=== PATIENT | male | born 1980 | race Caucasian/White ===

== ENCOUNTER → 2017-07-25 | Outpatient (CLI) | payer OTHER | LOC: M.RAD 15:14 | DX: I10 Essential (primary) hypertension (principal) ==

== ENCOUNTER → 2019-03-20 | Outpatient (CLI) | payer OTHER | LOC: M.ULTRA 14:52 | DX: N43.2 Other hydrocele (principal); N50.819 Testicular pain, unspecified; N50.9 Disorder of male genital organs, unspecified ==

== ENCOUNTER 2019-10-04 18:25 | Emergency (ER) | payer OTHER ==
[~2019-10-04] VITALS: Ht 182.9 cm; Wt 138.8 kg
[2019-10-04 19:00] LABS: ABSOLUTE BASOPHILS 0.1 thou/uL (0.0-0.2); ABSOLUTE EOSINOPHILS 0.3 thou/uL (0.0-0.7); ABSOLUTE NEUTROPHILS 4.3 thou/uL (1.6-8.1); BASOPHILS 0.6 %; EOSINOPHILS 2.4 %; LYMPHOCYTES 47.1 %; MCH 30.3 pg (26.0-34.0); MCHC 35.7 g/dL (28.0-37.0); NUCLEATED RBCS 0 /100WBC; PLATELET COUNT* 298 thou/uL (150-400); POLYS 40.9 %; RBC 5.29 mil/uL (4.50-6.00); RDW-CV 12.9 % (10.5-14.5); WBC 10.6 thou/uL (4.0-11.0)
[2019-10-04 19:12] LABS: CALCIUM 8.7 mg/dL (8.5-10.1); CREATININE 1.3 mg/dL (0.6-1.3)
[2019-10-04 19:23] LABS: ALBUMIN 4.5 g/dL (3.4-5.0); MAGNESIUM 1.8 mg/dL (1.8-2.4); TOTAL BILIRUBIN 0.3 mg/dL (<0.1-1.0); TOTAL PROTEIN 8.2 g/dL (6.4-8.2)
[2019-10-04 21:35] VITALS: BP 122/72
--- NOTE | 2019-10-05 09:29 | EKG ---
[place] [address] ELECTROCARDIOGRAM REPORT Name: ALENMARIJA ALLIE Room: [facility]#: [id number] Admission: 10/04/19 Attend Phys: Discharge: 10/04/19 Date of : 82 Date of Service: 10/04/19 1830 Report #: [id number] THIS REPORT FOR: //name// [facility] ED Test Date: 2019-10-04 Test Time: 18:30:48 Pat Name: MARIJA LOWRY Department: Room: Gender: Slitter Processed Film: : 1980 Requested By: Cristino Park Order Number: [id number] MD: Hossein Hidalgo Measurements Intervals [place] Rate: 111 P: 55 NE: 165 QRS: 50 QRSD: 108 T: -5 QT: 349 QTc: 474 Interpretive Statements Sinus tachycardia Borderline T abnormalities, inferior leads Baseline wander in lead(s) V2 No previous ECG available for comparison Electronically Signed On 10-05-2019 9:28:07 CDT by Hossein Hidalgo [email or web address] <ELECTRONICALLY SIGNED> By: Hossein Hidalgo MD, [facility] 10/05/19 0928 1830 1830 Hossein Hidalgo MD, [facility] /EPI
== END 2019-10-04 21:35 | disposition home or self-care (01) ==
LOC: M.ERS 18:25
PROVIDERS: Emergency Medicine Emergency Medical Services
DX: R07.89 Other chest pain (principal); F41.0 Panic disorder [episodic paroxysmal anxiety]

== ENCOUNTER → 2019-10-26 | Outpatient (CLI) | payer OTHER ==
--- NOTE | 2019-10-26 11:44 | TST ---
[place] [address] TREADMILL STRESS TEST Name: LOWRYMARIJA Room: [facility]#: [id number] Admission: 10/26/19 Attend Phys: Natalya Yancey DO Discharge: Date of : 82 Date of Service: 10/26/19 1105 Report #: [id number] THIS REPORT FOR: cc: Rodolfo Fall Adam J DO Holkins, John M. MD [facility] ~ CC: Rodolfo Yancey DO DATE OF SERVICE: 10/26/2019 TREADMILL TEST Resting 12-lead electrocardiogram demonstrates sinus rhythm and is within normal limits. The patient exercised for 9 minutes and 16 seconds according to a standard Yann protocol. He stopped because of shortness of breath, but denying chest pain. Resting heart rate was 74 with an increase to 188 at peak exercise, exceeding the 90% age predicted maximum. Blood pressure is 126/86 initially, increasing to 190/64 during exercise and falling to 157/82 during the post-exercise phase. There were no ischemic ST-T alterations noted. There were no significant supraventricular or ventricular arrhythmias noted. IMPRESSION: 1. Negative treadmill exercise test for provocation of ischemic ST-T alterations. 2. No chest pain provoked by exertion. 3. Appropriate heart rate and systolic blood pressure responses to exercise. 4. No significant arrhythmias noted during or post-exercise. 5. Satisfactory level of fitness for age. <ELECTRONICALLY SIGNED> By: Dustin Rubio MD, FACC 10/26/19 1144 1105 1120 Dustin Rubio MD, FACC /nt
== END ==
LOC: M.NUC 10-15 08:38
DX: R07.9 Chest pain, unspecified (principal); E78.5 Hyperlipidemia, unspecified; K76.0 Fatty (change of) liver, not elsewhere classified

== ENCOUNTER 2020-03-07 23:22 | Emergency (ER) | payer OTHER ==
[~2020-03-07] VITALS: Ht 182.9 cm; Wt 147.4 kg
[2020-03-07] MEDS ORDERED: VENTOLIN HFA 1818 GM INH (23:35)
[2020-03-07 23:50] LABS: ABSOLUTE BASOPHILS 0.1 thou/uL (0.0-0.2); ABSOLUTE EOSINOPHILS 0.1 thou/uL (0.0-0.7); ABSOLUTE LYMPHOCYTES 2.8 thou/uL (0.8-5.3); ABSOLUTE MONOCYTES 0.9 thou/uL (0.0-1.2); ABSOLUTE NEUTROPHILS 8.8 thou/uL (1.6-8.1); BASOPHILS 0.6 %; EOSINOPHILS 1.1 %; HEMATOCRIT 45.6 % (42.0-52.0); HEMOGLOBIN 16.1 gm/dL (14.0-18.0); LYMPHOCYTES 21.8 %; MCH 30.2 pg (26.0-34.0); MCHC 35.4 g/dL (28.0-37.0); MCV 85.1 fL (80.0-100.0); MONOCYTES 7.2 %; MPV 7.7 fl. (7.2-11.1); NUCLEATED RBCS 0 /100WBC; PLATELET COUNT* 245 thou/uL (150-400); POLYS 69.3 %; RBC 5.35 mil/uL (4.50-6.00); WBC 12.7 thou/uL (4.0-11.0)
[2020-03-08] LABS: CALCIUM 9.5 mg/dL (8.5-10.1); CREATININE 1.3 mg/dL (0.6-1.3); POTASSIUM 3.1 mmol/L (3.5-5.1)
[2020-03-08 00:04] LABS: APTT 26.3 Seconds (25.0-31.3); INR 1.1; PROTIME 11.1 Seconds (9.20-11.50)
[2020-03-08 00:13] LABS: ALBUMIN 4.5 g/dL (3.4-5.0); CK-MB MASS 1.8 ng/mL (<0.5-3.6); MAGNESIUM 1.8 mg/dL (1.8-2.4); TOTAL BILIRUBIN 0.5 mg/dL (<0.1-1.0); TOTAL PROTEIN 8.3 g/dL (6.4-8.2)
[2020-03-08] MEDS ORDERED: XANAX 1 MG TABLE1 MG PO (02:01)
[2020-03-08 02:06] VITALS: BP 134/74
--- NOTE | 2020-03-10 17:30 | EKG ---
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1980 Requested By: Yordy Clark Order Number: [id number] MD: Venkata Snowden Measurements Intervals [place] Rate: 114 P: 54 [place]: 181 QRS: 55 QRSD: 110 T: -16 QT: 332 QTc: 458 Interpretive Statements Sinus tachycardia Borderline repolarization abnormality Baseline wander in lead(s) II,III,aVR,aVF Compared to ECG 10/04/2019 18:30:48 T-wave abnormality no longer present Electronically Signed On 03-10-2020 17:30:05 CDT by Venkata Snowden [email or web address] <ELECTRONICALLY SIGNED> By: Venkata Snowden MD, FAC 03/10/20 1730 2327 2327 Venkata Snowden MD, FAC /EPI
== END 2020-03-08 02:09 | disposition home or self-care (01) ==
LOC: M.ERS 23:22
PROVIDERS: Emergency Medicine
DX: F41.9 Anxiety disorder, unspecified (principal); R07.9 Chest pain, unspecified; E78.00 Pure hypercholesterolemia, unspecified; E66.9 Obesity, unspecified; Z88.1 Allergy status to other antibiotic agents

== ENCOUNTER 2020-03-10 20:24 | Observation (INO) | payer OTHER ==
[~2020-03-10] VITALS: Ht 182.9 cm; Wt 140.2 kg
[~2020-03-10 20:24] MED LIST: VENTOLIN HFA 1818 GM INH; XANAX 1 MG TABLE1 MG PO
[2020-03-10 20:31] VITALS: BP 173/89
[2020-03-10 20:54] LABS: ABSOLUTE BASOPHILS 0.1 thou/uL (0.0-0.2); ABSOLUTE EOSINOPHILS 0.2 thou/uL (0.0-0.7); ABSOLUTE LYMPHOCYTES 3.2 thou/uL (0.8-5.3); ABSOLUTE MONOCYTES 0.7 thou/uL (0.0-1.2); ABSOLUTE NEUTROPHILS 4.2 thou/uL (1.6-8.1); BASOPHILS 0.6 %; EOSINOPHILS 2.1 %; HEMATOCRIT 45.3 % (42.0-52.0); LYMPHOCYTES 38.6 %; MCH 30.2 pg (26.0-34.0); MCHC 35.4 g/dL (28.0-37.0); MCV 85.4 fL (80.0-100.0); MONOCYTES 8.6 %; MPV 7.5 fl. (7.2-11.1); NUCLEATED RBCS 0 /100WBC; PLATELET COUNT* 242 thou/uL (150-400); POLYS 50.1 %; RBC 5.31 mil/uL (4.50-6.00); WBC 8.3 thou/uL (4.0-11.0)
[2020-03-10 21:07] LABS: CALCIUM 8.9 mg/dL (8.5-10.1); CREATININE 1.3 mg/dL (0.6-1.3); POTASSIUM 3.3 mmol/L (3.5-5.1)
[2020-03-10 21:08] LABS: APTT 26.5 Seconds (25.0-31.3); INR 1.1; PROTIME 11.6 Seconds (9.20-11.50)
[2020-03-10 21:19] LABS: ALBUMIN 4.5 g/dL (3.4-5.0); TOTAL BILIRUBIN 0.8 mg/dL (<0.1-1.0); TOTAL PROTEIN 8.1 g/dL (6.4-8.2)
[2020-03-11 00:21] VITALS: BP 138/75
[2020-03-11 00:40] VITALS: BP 155/90
[2020-03-11 01:42] LABS: URINE BILIRUBIN NEGATIVE (Negative); URINE BLOOD NEGATIVE (Negative); URINE CLARITY CLEAR; URINE COLOR YELLOW; URINE GLUCOSE-RANDOM NEGATIVE (Negative); URINE KETONES TRACE (Negative); URINE LEUKOCYTES-REFLEX NEGATIVE (Negative); URINE NITRITE-REFLEX NEGATIVE (Negative); URINE PROTEIN NEGATIVE (Negative); URINE UROBILINOGEN 0.2 E.U./dl (0.2-1.0)
[2020-03-11 01:49] LABS: AMP/METHAMP Negative (Negative); BARBITURATES Negative (Negative); BENZODIAZEPINES Negative (Negative); COCAINE Negative (Negative); METHADONE Negative (Negative); OPIATES Negative (Negative); PCP Negative (Negative); THC Negative (Negative)
[2020-03-11 04:33] VITALS: BP 108/701
[2020-03-11 05:27] LABS: CHOLESTEROL 182 mg/dL (<200); HDL CHOLESTEROL 35 mg/dL (>40); LDL CHOLESTEROL 128 mg/dL (<100); TC:HDL 5.2 Ratio (Not establshd); TRIGLYCERIDE 98 mg/dL (<150); VLDL 20 mg/dL (<40)
[2020-03-11 05:38] LABS: SERUM ASSESSMENT Clear
--- NOTE | 2020-03-11 07:36 | NUR ---
ADMITTED PT TO RM 226 @ 0030. pT ALERT AND ORIENTED. VSS ON RA. MEDS GIVEN PER EMAR. PT WAS ANXIOUS ABOUT HAVING COVID PTS ON THE UNIT. PT VOICED THAT HE HAS AN AT RISK DTR. PT TOLD THAT ROOM CAN BE CLOSED AT ALL TIMES IF IT WILL MAKE HIM MORE COMFORTABLE HE WANTED TO HAVE HIS MASK ON AT ALL TIMES. PT OK WITH HAVING ROOM CALSOED. PT UP AD SOFÍA. ORIENTED TO ROOM AND CALL LIGHT. NPO FOR CARDIOLOGY CONSULT. WILL CONTINUE TO MONITOR.
[2020-03-11 08:00] VITALS: BP 133/84
--- NOTE | 2020-03-11 09:06 | NUR ---
Interview with patient at bedside. States lives with and child. Indep with ADLs. No history of HH.
--- NOTE | 2020-03-11 10:32 | NUR ---
ASSUMED PT CARE AT 0730, PT AOX4 AND C/O SOME MINOR CHEST PAIN RATED 3/10 IN L CHEST, HE STATES WHEN HE TAKES VANESA SELTZER, IT TEMOPORARILY MAKES IT BETTER AND STRENUOUS ACTIVITIES MAKE IT WORSE. PT DENIES WANTING ANY PAIN MEDS OR NITRO. PT WORKED W/ CARDIOLOGY THIS MORNING, GI COCKTAIL ORDERED AND GIVEN TO PT. PT POTASSIUM LOW THIS MORNING, 3.3, DR HOWARD CONSULTED AND AWAITING ORDERS. PT GOAL IS TO KEEP CHEST PAIN UNDER CONTROL AND WORK ON DECREASING ANXIETY. PT DOOR IS TO BE KEPT SHUT R/T PT BEING ANXIOUS ABOUT US HAVING COVID PATIENT'S ON THIS FLOOR. AM ASSESSMENT CHARTED, MEDS PER MAR, HOURLY ROUNDING OBSERVED, PT UP AD SOFÍA, CALL LIGHT W/IN REACH, WILL CONTINUE POC.
[2020-03-11 12:00] VITALS: BP 125/82
[2020-03-11] MEDS ORDERED: SUMATRIPTAN SUC50 MG PO (14:28)
[2020-03-11] MEDS ORDERED: PROTONIX40 M2 PO (14:28)
--- NOTE | 2020-03-11 14:30 | NUR ---
Nutrition: Pt admitted with chest pain, possibly R/T reflux. Consult received for keto diet. Spoke with RN today. Pt is wanting a keto diet once he advances past NPO. We do not have a ketogenic diet here, but RN stated she'd give pt a menu so he could have choices to order. Currently NPO. Alb 4.5. No other needs at this time. Pt is aware of his home diet and chooses keto and fasting, per RN. Low nutrition risk.
--- NOTE | 2020-03-11 16:09 | EKG ---
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 : 1980 Requested By: Dasha Hay Order Number: [id number] MD: Dustin Rubio Measurements Intervals [place] Rate: 94 P: 54 [place]: 191 QRS: 53 QRSD: 102 T: -2 QT: 357 QTc: 447 Interpretive Statements Sinus rhythm Borderline T abnormalities, inferior leads Compared to ECG 03/07/2020 23:27:56 T-wave abnormality now present Sinus tachycardia no longer present Electronically Signed On 03-11-2020 16:09:33 CDT by Dustin Rubio [email or web address] <ELECTRONICALLY SIGNED> By: Dustin Rubio MD, FACC 03/11/20 1609 29 29 Dustin Rubio MD, FAC /EPI
--- NOTE | 2020-03-11 16:50 | 2DMMODE ---
[place] [address] 2 D/M-MODE ECHOCARDIOGRAM Name: MARIJA LOWRY Zeus Room: [address] [place]ubrey#: [id number] Admission: 03/10/20 Attend Phys: Bhavesh Hines, Discharge: Date of : 82 Date of Service: 03/11/20 1650 Report #: [id number] THIS REPORT FOR: cc: Rodolfo Fall Adam J DO Liston, Michael J. MD [facility] ~ APPROVED REPORT Study performed: 03/11/2020 14:10:06 EXAM: Comprehensive 2D, Doppler, and color-flow Echocardiogram Patient Location: In-Patient Room #: [facility] Status: routine BSA: 2.56 HR: 60 bpm BP: 125/82 mmHg Rhythm: NSR Other Information Study Quality: Good Indications Dyspnea Chest Pain 2D Dimensions IVSd: 10.94 (7-11mm) LVOT Diam: 23.11 (18-24mm) LVDd: 48.58 mm PWd: 10.42 (7-11mm) Ascending Ao: 31.37 (22-36mm) LVDs: 31.11 (25-40mm) Aortic Root: 32.69 mm Volumes Left Atrial Volume (Systole) LA ESV Index: 22.30 mL/m2 Aortic Valve AoV Peak Justen.: 1.08 m/s AO Peak Gr.: 4.63 mmHg LVOT Max P.50 mmHg AO Mean Gr.: 3.09 mmHg LVOT Mean P.24 mmHg LVOT Max V: 1.06 m/s AO V2 VTI: 22.74 cm LVOT Mean V: 0.68 m/s DAVIAN (VTI): 4.38 cm2 LVOT V1 VTI: 23.77 [place] [address] 2 D/M-MODE ECHOCARDIOGRAM Name: MARIJA LOWRY Room: [address]#: [id number] Admission: 03/10/20 Attend Phys: Bhavesh Hines, Discharge: Date of : 82 Date of Service: 03/11/20 1650 Report #: [id number] Mitral Valve E/A Ratio: 1.62 MV Decel. Time: 182.33 ms MV E Max Justen.: 0.66 m/s MV PHT: 52.88 ms MVA (PHT): 4.16 cm2 TDI E/Lateral E': 3.67 E/Medial E': 5.50 Medial E' Justen.: 0.12 m/s Lateral E' Justen.: 0.18 m/s Pulmonary Valve PV Peak Justen.: 1.04 m/s PV Peak Gr.: 4.34 mmHg Left Ventricle The left ventricle is normal size. There is normal LV segmental wall motion. There is normal left ventricular wall thickness. Left ventricular systolic function is normal. LVEF is 60-65%. The left ventricular diastolic function is normal. Right Ventricle The right ventricle is normal size. The right ventricular systolic function is normal. Atria The left atrium size is normal. The right atrium size is normal. Aortic Valve The aortic valve is normal in structure. No aortic regurgitation is present. There is no aortic valvular stenosis. Mitral Valve The mitral valve is normal in structure. There is no mitral valve regurgitation noted. No evidence of mitral valve stenosis. Tricuspid Valve The tricuspid valve is normal in structure. Unable to assess PA pressure. Trace tricuspid regurgitation. Pulmonic Valve The pulmonary valve is normal in structure. There is no pulmonic [place] [address] 2 D/M-MODE ECHOCARDIOGRAM Name: MARIJA LOWRY Room: [address] M[address]R.#: [id number] Admission: 03/10/20 Attend Phys: Bhavesh Hines, Discharge: Date of : 82 Date of Service: 03/11/20 1650 Report #: [id number] Great Vessels The aortic root is normal in size. IVC is not well visualized. Pericardium There is no pericardial effusion. <Conclusion> The left ventricle is normal size. There is normal left ventricular wall thickness. Left ventricular systolic function is normal. LVEF is 60-65%. The left ventricular diastolic function is normal. Trace tricuspid regurgitation. <ELECTRONICALLY SIGNED> By: Venkata Snowden MD, FACC 03/11/201649 49 49 Venkata Snowden MD, FACC /INF
[2020-03-11 21:07] VITALS: BP 139/88
[2020-03-12 00:07] VITALS: BP 131/79
[2020-03-12 04:38] VITALS: BP 132/84
--- NOTE | 2020-03-12 05:54 | NUR ---
RECEIVED REPORT AND ASSUMED CARE OF PATIENT AT 1900. FULL ASSESSMENT COMPLETED CHARTED. BED LOCKED AND IN LOW POSITION, CALL LIGHT AND PERSONAL ITEMS IN REACH. PT A&OX4, SPO2 98 ON RA, SR ON MONITOR, UP AD SOFÍA.
[2020-03-12 08:00] VITALS: BP 140/80
[2020-03-12 08:15] VITALS: BP 140/80
[2020-03-12 10:43] VITALS: BP 140/80
[2020-03-12 10:46] VITALS: BP 140/80
[2020-03-12] MEDS ORDERED: CYMBALTA30 MG PO (11:48)
--- NOTE | 2020-03-12 12:08 | NUR ---
ASSUMED PT CARE AT 0730, PT AOX4, MINOR C/O ACID REFLUX AND HEADACHE, HEADACHE TREATED W/ MEDS. GI WANTS TO SEE PT OUTPT. SO DC ORDERS RECEIVED, DC INSTRUCTIONS, CARE NOTES, SCRIPTS AND F/U APPTS GIVEN TO PT. PT ALREADY HAS GI APPT SCHEDULED W/ HIS OWN GI DR TOMORROW. PT COMMUNICATES UNDERSTANDING OF DC TEACHING. 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 PT DC'D BY WC W/ NURSING STAFF AT APPROX 1205.
== END 2020-03-12 12:05 | disposition home or self-care (01) ==
LOC: M.ERS 20:24 → M.2W 23:21 → M.TBA-ER 23:21 → M.2W 23:55
PROVIDERS: Personal Emergency Response Attendant; ADMIT Internal Medicine; ATTEND Internal Medicine
DX: R07.89 Other chest pain (principal); F41.9 Anxiety disorder, unspecified; E66.01 Morbid (severe) obesity due to excess calories; Z68.41 Body mass index [BMI] 40.0-44.9, adult; Z79.899 Other long term (current) drug therapy